=== PATIENT | male | born 2000 | race Native Hawaiian/Other Pacific Islander ===

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

== ENCOUNTER 2018-05-02 02:39 | Emergency (ER) | payer OTHER ==
[2018-05-02 03:08] VITALS: RESP 18
--- NOTE | 2018-05-02 03:43 | XR ---
EXAMINATION TYPE: XR hand complete RT DATE OF EXAM: 05/02/2018 COMPARISON: NONE HISTORY: Hand pain TECHNIQUE: 3 views FINDINGS: Metacarpals are intact. There is a 5 mm chip fracture of the posterior base of the distal p halanx of the little finger. This is probably an old fracture. There is no dislocation. There is a 1 mm foreign body in the soft tissues anterior to the DIP joint of the middle finger. IMPRESSION: Old ununited chip fracture of the DIP joint of the little finger. No definite acute fract ure seen. There is soft tissue swelling on the dorsum of the hand.
[2018-05-02] MEDS ORDERED: LIDOCAINE 1% INJ 10MG/ML (20 ML MDV) SQ ONE (03:50)
--- NOTE | 2018-05-02 04:00 | ED ---
General Adult HPI - General Source: patient, RN notes reviewed Mode of arrival: ambulatory Limitations: no limitations <Carlos Thomas - Last Filed: 05/02/18 04:18> <Silvia Gallo P - Last Filed: 05/03/18 06:43> - General Chief complaint: Extremity Injury, Upper Stated complaint: R Hand Injury Time Seen by Provider: 05/02/18 03:14 - History of Present Illness Initial comments: 17-year-old male presents to the emergency determine for a chief complaint of right hand injury occurring about one hour ago after punching a plastic object. Patient states he was "goofing around with his friends." Patient states he can move his hand but it is painful due to the swelling. Patient denies getting into any fights or any human bites. Patient denies any wrist or elbow pain. Patient denies any other injuries or hitting his head. Patient has no other complaints at this time including shortness of breath, chest pain, abdominal pain, nausea or vomiting, headache, or visual changes. (Carlos Thomas) - Related Data Home Medications Medication Instructions Recorded Confirmed No Known Home Medications 08/21/17 05/02/18 Allergies Allergy/AdvReac Type Severity Reaction Status Date / Time No Known Allergies Allergy Verified 05/02/18 03:24 Review of Systems ROS Other: All systems not noted in ROS Statement are negative. <Carlos Thomas - Last Filed: 05/02/18 04:18> ROS Other: All systems not noted in ROS Statement are negative. <Silvia Gallo P - Last Filed: 05/03/18 06:43> ROS Statement: Those systems with pertinent positive or pertinent negative responses have been documented in the HPI. Past Medical History Past Medical History: No Reported History History of Any Multi-Drug Resistant Organisms: None Reported Past Surgical History: No Surgical Hx Reported Past Psychological History: No Psychological Hx Reported Smoking Status: Current some day smoker Past Alcohol Use History: Rare Past Drug Use History: None Reported <Carlos Thomas - Last Filed: 05/02/18 04:18> General Exam Limitations: no limitations General appearance: alert, in no apparent distress (Sitting on edge of bed and) Head exam: Present: atraumatic, normocephalic, normal inspection Eye exam: Present: normal appearance. Absent: scleral icterus, conjunctival injection ENT exam: Present: normal exam, mucous membranes moist Neck exam: Present: normal inspection, full ROM. Absent: tenderness, meningismus, lymphadenopathy Respiratory exam: Present: normal lung sounds bilaterally. Absent: respiratory distress, wheezes, rales, rhonchi, stridor Cardiovascular Exam: Present: regular rate, normal rhythm, normal heart sounds. Absent: systolic murmur, diastolic murmur, rubs, gallop, clicks Extremities exam: Present: tenderness (Tenderness over the third fourth and fifth carpals of the right hand), normal capillary refill, joint swelling ( Capillary refill less than 2 seconds and radial pulse 2+ in the right upper extremity. Patient does have moderate swelling noted of the dorsal right hand along the third fourth and fifth metacarpals), other (Sensation intact in the right upper extremity. Patient has a 1.5 cm laceration to the dorsal aspect of the fourth metacarpal head. No signs of foreign body. No evidence of cellulitis or other infection.). Absent: full ROM (Patient has some decreased range of motion of the MCP joints in the right hand due to pain but is able to flex and extend MCP, PIP, and DIP joints of all digits in the right hand) Neurological exam: Present: alert, oriented X3, CN II-XII intact Psychiatric exam: Present: normal affect, normal mood <Carlos Thomas P - Last Filed: 05/02/18 04:18> Vital Signs 05/02/18 05/02/18 03:03 04:33 Temperature 98.5 F 97.9 F Pulse Rate 68 71 Respiratory 18 18 Rate Blood Pressure 123/81 119/78 O2 Sat by Pulse 98 98 Oximetry Procedures - Laceration Laceration #1 Consent Obtained: verbal consent Indication: laceration Site: hand Description: linear Depth: simple, single layer Anesthetic Used: lidocaine 1% Anesthesia Technique: local infiltration Amount (mls): 1 Pre-repair: wound explored, irrigated extensively, deep structures intact Type of Sutures: other (ethilon) Size of Sutures: 5-0 Number of Sutures: 4 Technique: simple, interrupted Patient Tolerated Procedure: well, no complications <Carlos Thomas P - Last Filed: 05/02/18 04:18> Medical Decision Making <Carlos Thomas P - Last Filed: 05/02/18 04:18> <Silvia Gallo P - Last Filed: 05/03/18 06:43> - Medical Decision Making 17-year-old male percent to the emergency department for chief complaint of laceration on the fourth metacarpal head of the right hand. Patient punched something earlier today and does have swelling. Patient is able to move all digits of the right hand including all joints in the digit. Sensation intact. Neurovascular intact. X-ray shows no acute fractures seen. Old ununited chip fracture of the DIP joint is noted which patient does not have pain and at this time. Patient is up-to-date on tetanus. 4 sutures were applied. Patient will return to the emergency department if he has any worsening symptoms. He was educated on signs of infection. He will return in 7-10 days to have sutures removed. Patient aware that in 7-10 days if he still has pain he may need repeat x-rays. He will follow up with primary care in 1-2 days for wound recheck. (Carlos Thomas) I was available for consultation in the emergency department. The history and physical exam were done by the midlevel provider. I was consulted for this patient's care. I reviewed the case with the midlevel provider and based on their presentation of the patient, I agree with the assessment, medical decision making and plan of care as documented. (Silvia Gallo) Disposition Is patient prescribed a controlled substance at d/c from ED?: No Time of Disposition: 04:21 <Carlos Thomas P - Last Filed: 05/02/18 04:18> <Silvia Gallo - Last Filed: 05/03/18 06:43> Clinical Impression: Laceration Disposition: HOME SELF-CARE Condition: Good Instructions: Care For Your Stitches (ED), Laceration (ED), RICE Therapy (ED) Additional Instructions: Please monitor for any signs of infection such as spreading redness, streaking redness, or drainage and return if these occur. Please follow-up with primary care in 1-2 days. Rest ice and elevate the right hand. Return in 7-10 days to have sutures removed. If symptoms do not resolve in 7-10 days he may need repeat x-rays. Return if you have any additional concerns or worsening symptoms. Referrals: Pierce Hassan MD [STAFF PHYSICIAN] - 1-2 days
[2018-05-02 04:35] VITALS: BP 119/78; PULSE 71; TEMP 97.9
== END 2018-05-02 04:35 | disposition home or self-care (01) ==
LOC: EC 02:39
DX: S61.411A Laceration without foreign body of right hand, initial encounter (principal); F17.200 Nicotine dependence, unspecified, uncomplicated; W22.8XXA Striking against or struck by other objects, initial encounter; Y92.009 Unspecified place in unspecified non-institutional (private) residence as the place of occurrence of the external cause
CPT/HCPCS: 99283; 12001; 73130; J2001

== ENCOUNTER 2019-03-28 22:54 | Emergency (ER) | payer OTHER ==
[2019-03-28 23:06] VITALS: RESP 17
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
[2019-03-29 03:13] VITALS: BP 130/75; PULSE 60; TEMP 97.9
== END 2019-03-29 02:05 | disposition home or self-care (01) ==
LOC: EC 22:54
DX: F32.9 Major depressive disorder, single episode, unspecified (principal); F17.200 Nicotine dependence, unspecified, uncomplicated
CPT/HCPCS: 82075; 99284

== ENCOUNTER 2019-06-08 19:19 | Inpatient (IN) | payer BC, OTHER ==
[2019-06-08] MEDS ORDERED: ACTIVATED CHARCOAL-SORBITOL 50 GM/240 ML BOTTLE PO STA (20:04)
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
[2019-06-08 20:35] LABS: Amphetamine Screen,Urine Not Detected (NotDetected); Barbiturate Screen,Urine Not Detected (NotDetected); Benzodiazepines Screen,Urine Not Detected (NotDetected); Cocaine Screen,Urine Not Detected (NotDetected); Methadone Screen, Urine Not Detected (NotDetected); Opiate Screen,Urine Not Detected (NotDetected); Oxycodone Screen, Urine Not Detected (NotDetected); Phencyclidine Screen,Urine Not Detected (NotDetected); Tricyclic Antidepressant,Urine Not Detected (NotDetected); Urn Cannabinoid Scrn Not Detected (NotDetected)
[2019-06-08 23:43] LABS: ALT 17 U/L (21-72); AST 27 U/L (17-59); Acetaminophen <10.0 ug/mL; African American GFR (CKD) >90 (>60 ml/min/1.73 sqM); Albumin 4.6 g/dL (3.5-5.0); Alkaline Phosphatase 48 U/L (38-126); Anion Gap 11 mmol/L; Blood Urea Nitrogen 15 mg/dL (9-20); Calcium 9.6 mg/dL (8.4-10.2); Carbon Dioxide 25 mmol/L (22-30); Chloride 107 mmol/L (98-107); Glucose 95 mg/dL (74-99); Non-African American GFR(CKD) >90 (>60 ml/min/1.73 sqM); Salicylate <1.0 mg/dL; Sodium 143 mmol/L (137-145); Total Bilirubin 0.9 mg/dL (0.2-1.3); Total Protein 7.4 g/dL (6.3-8.2)
[2019-06-08 23:45] LABS: Basophils % (A) 0 %; Eosinophils # (A) 0.1 k/uL (0-0.7); Eosinophils % (A) 1 %; HCT 40.3 % (39.0-53.0); HGB 14.7 gm/dL (13.0-17.5); Lymphocytes # (A) 1.9 k/uL (1.0-4.8); Lymphocytes % (A) 31 %; MCH 30.6 pg (25.0-35.0); MCHC 36.4 g/dL (31.0-37.0); MCV 84.1 fL (80.0-100.0); Mean Platelet Volume 5.5; Monocytes # (A) 0.3 k/uL (0-1.0); Monocytes % (A) 5 %; Neutrophils # (A) 3.9 k/uL (1.3-7.7); Neutrophils % (A) 63 %; Platelet Count 263 k/uL (150-450); RBC 4.79 m/uL (4.30-5.90); RDW 11.7 % (11.5-15.5); WBC 6.2 k/uL (4.0-11.0)
[2019-06-09] MEDS ORDERED: MAGNESIUM HYDROXIDE 2,400 MG/10 ML CUP PO PRN (00:15)
[2019-06-09] MEDS ORDERED: MAG HYDROX/AL HYDROX/SIMETH 30 ML CUP PO PRN (00:15)
[2019-06-09] MEDS ORDERED: LORazepam 0.5 MG TAB PO PRN (00:15)
[2019-06-09] MEDS ORDERED: ACETAMINOPHEN TAB 325 MG TAB PO PRN (00:15)
[2019-06-09] MEDS ORDERED: LORazepam 2 MG/ML INJ IM PRN (00:17)
[2019-06-09 00:43] VITALS: BMI 20.7
--- NOTE | 2019-06-09 02:00 | P.MDCNMH ---
History of Present Illness H&P Date: 06/09/19 Chief Complaint: overdosing 18-year-old male with no significant past medical history came into the hospital after ingesting 10 pills of Lexapro. He admits to suicide attempt as he wasn't feeling content with the way his life is and wanted to take a different direction. He immediately regretted what he did and came into the hospital seeking help he arrived within 1 hour of ingestion he received activated charcoal in the ED and was admitted to the psych unit otherwise he denies any chest pain trouble breathing nausea vomiting fevers chills changes in his bowel or urinary habits denies any focal neuro deficits. EKG in the ED was unremarkable Labs and electrolytes in the ED were unremarkable. Review of Systems Pertinent positives as noted in HPI. All other systems were reviewed and are negative Past Medical History Past Medical History: No Reported History History of Any Multi-Drug Resistant Organisms: None Reported Past Surgical History: No Surgical Hx Reported Past Psychological History: No Psychological Hx Reported Smoking Status: Never smoker Past Alcohol Use History: Rare Past Drug Use History: None Reported - Past Family History Family Family Medical History: No Reported History (Denies CAD or cancer) Medications and Allergies Home Medications Medication Instructions Recorded Confirmed Type Escitalopram [Lexapro] See Taper PO DAILY 06/08/19 06/09/19 History Allergies Allergy/AdvReac Type Severity Reaction Status Date / Time No Known Allergies Allergy Verified 06/09/19 00:52 Physical Exam Vitals: Vital Signs Temp Pulse Pulse Resp BP BP Pulse Ox 06/09/19 00:37 98.0 F 67 14 123/82 98 06/08/19 23:06 55 L 16 117/82 99 06/08/19 19:22 97.8 F 56 L 16 130/82 99 Intake and Output 06/08/19 06/08/19 06/09/19 14:59 22:59 06:59 Other: Weight 58.967 kg Constitutional: No acute distress, conversant, pleasant Eyes: Anicteric sclerae, moist conjunctiva, no lid-lag Pupils equal round reactive to light ENMT: NC/AT Oropharynx clear, no erythema, exudates Neck: Supple, FROM, no masses, or JVD No carotid bruits No thyromegaly Lungs: Clear to auscultation Clear to percussion Normal respiratory effort, no accessory muscle use Cardiovascular: Heart regular in rate and rhythm, No murmurs, gallops, or rubs No peripheral edema Abdominal: Soft Nontender, no guarding, rebound or rigidity Abdomen moving with respiration Normoactive bowel sounds No hepatomegaly, No splenomegaly No palpable mass No abdominal wall hernia noted Skin: Normal temperature, tone, texture, turgor No induration No subcutaneous nodules No rash, lesions No ulcers Extremities: No digital cyanosis No clubbing Pedal pulses intact and symmetrical Radial pulses intact and symmetrical No calf tenderness Psychiatric: Alert and oriented to person, place and time Depressed affect Poor judgment Neuro Muscles Strength 5/5 in all 4 extremities Sensation to light touch grossly present throughout Cranial nerves II-XII grossly intact No focal sensory deficits Lymphatics: no palpable cervical or supraclavicular , or inguinal lymph nodes Cranial Nerve Examination - Cranial Nerves Cranial Nerve II- Optic: Intact Cranial Nerve III- Oculomotor: Intact Cranial Nerve IV- Trochlear: Intact Cranial Nerve V- Trigeminal: Intact Cranial Nerve - Abducens: Intact Cranial Nerve VII- Facial: Intact Cranial Nerve VIII- Auditory: Intact Cranial Nerve IX- Glossopharyngeal: Intact Cranial Nerve X- Vagus: Intact Cranial Nerve XI- Accessory: Intact Cranial Nerve XII- Hypoglossal: Intact Results CBC & Chem 7: 06/08/19 22:35 06/08/19 22:35 Labs: Abnormal Lab Results - Last 24 Hours (Table) 06/08/19 Range/Units 22:35 ALT 17 L (21-72) U/L Assessment and Plan Assessment: 18-year-old male was feeling unhappy with the way his life as decided on taking pills to take a different direction his life immediately regretted what he did came into the hospital seeking help he admits that this was a suicidal attempt and admits to prior history of suicidal ideation. Denies any mental health problems denies taking any drugs or alcohol Plan: Suicidal attempt Overdosing on Lexapro status post activated charcoal Management per psych Suicide precautions EKG unremarkable labs unremarkable Thank you for allowing us to participate in the care of this patient. We will follow peripherally. Do not hesitate to contact us with questions. Someone can be reached from the [facility] hospitalist group at all hours of the day at [phone].
[2019-06-09 02:40] LABS: Amorphous Sediment,Urine Occasional /hpf; Appearance,Urine Cloudy (Clear); Bacteria,Urine Rare /hpf; Bilirubin,Urine Negative (Negative); Blood,Urine Negative (Negative); Calcium Oxalate Crystals,Urine Rare /hpf; Color,Urine Yellow; Glucose,Urine (UA) Negative (Negative); Ketones,Urine Negative (Negative); Leukocyte Esterase,Urine Small (Negative); Mucus,Urine Few /hpf; Nitrite,Urine Negative (Negative); Protein,Urine Negative (Negative); RBC,Urine 2 /hpf (0-5); Specific Gravity,Urine 1.023 (1.001-1.035); Squamous Epithelial Cell,Urine <1 /hpf (0-4); WBC,Urine 14 /hpf (0-5)
--- NOTE | 2019-06-09 11:39 | P.HP ---
Psychiatric H&P - . H&P Date: 06/09/19 History & Physical: Allergies Allergy/AdvReac Type Severity Reaction Status Date / Time No Known Allergies Allergy Verified 06/09/19 00:52 Vital Signs Temp 98.3 F 06/09/19 06:46 Pulse 72 06/09/19 06:46 Resp 16 06/09/19 06:46 BP 115/56 06/09/19 06:46 Pulse Ox 98 06/09/19 00:37 Intake & Output 06/08/19 06/09/19 06/09/19 18:59 06:59 18:59 Weight 58.967 kg Laboratory Last Values WBC 6.2 k/uL (4.0-11.0) 06/08/19 22:35 RBC 4.79 m/uL (4.30-5.90) 06/08/19 22:35 Hgb 14.7 gm/dL (13.0-17.5) 06/08/19 22:35 Hct 40.3 % (39.0-53.0) 06/08/19 22:35 MCV 84.1 fL (80.0-100.0) 06/08/19 22:35 MCH 30.6 pg (25.0-35.0) 06/08/19 22:35 MCHC 36.4 g/dL (31.0-37.0) 06/08/19 22:35 RDW 11.7 % (11.5-15.5) 06/08/19 22:35 Plt Count 263 k/uL (150-450) 06/08/19 22:35 Neutrophils % 63 % 06/08/19 22:35 Lymphocytes % 31 % 06/08/19 22:35 Monocytes % 5 % 06/08/19 22:35 Eosinophils % 1 % 06/08/19 22:35 Basophils % 0 % 06/08/19 22:35 Neutrophils # 3.9 k/uL (1.3-7.7) 06/08/19 22:35 Lymphocytes # 1.9 k/uL (1.0-4.8) 06/08/19 22:35 Monocytes # 0.3 k/uL (0-1.0) 06/08/19 22:35 Eosinophils # 0.1 k/uL (0-0.7) 06/08/19 22:35 Basophils # 0.0 k/uL (0-0.2) 06/08/19 22:35 Sodium 143 mmol/L (137-145) 06/08/19 22:35 Potassium 4.0 mmol/L (3.5-5.1) 06/08/19 22:35 Chloride 107 mmol/L (98-107) 06/08/19 22:35 Carbon Dioxide 25 mmol/L (22-30) 06/08/19 22:35 Anion Gap 11 mmol/L 06/08/19 22:35 BUN 15 mg/dL (9-20) 06/08/19 22:35 Creatinine 0.87 mg/dL (0.66-1.25) 06/08/19 22:35 Est GFR (CKD-EPI)AfAm >90 (>60 ml/min/1.73 sqM) 06/08/19 22:35 Est GFR (CKD-EPI)NonAf >90 (>60 ml/min/1.73 sqM) 06/08/19 22:35 Glucose 95 mg/dL (74-99) 06/08/19 22:35 Calcium 9.6 mg/dL (8.4-10.2) 06/08/19 22:35 Total Bilirubin 0.9 mg/dL (0.2-1.3) 06/08/19 22:35 AST 27 U/L (17-59) 06/08/19 22:35 ALT 17 U/L (21-72) L 06/08/19 22:35 Alkaline Phosphatase 48 U/L (38-126) 06/08/19 22:35 Total Protein 7.4 g/dL (6.3-8.2) 06/08/19 22:35 Albumin 4.6 g/dL (3.5-5.0) 06/08/19 22:35 Urine Color Yellow 06/08/19 20:05 Urine Appearance Cloudy (Clear) 06/08/19 20:05 Urine pH 7.0 (5.0-8.0) 06/08/19 20:05 Ur Specific [place] 1.023 (1.001-1.035) 06/08/19 20:05 Urine Protein Negative (Negative) 06/08/19 20:05 Urine Glucose (UA) Negative (Negative) 06/08/19 20:05 Urine Ketones Negative (Negative) 06/08/19 20:05 Urine Blood Negative (Negative) 06/08/19 20:05 Urine Nitrite Negative (Negative) 06/08/19 20:05 Urine Bilirubin Negative (Negative) 06/08/19 20:05 Urine Urobilinogen 4.0 mg/dL (<2.0) 06/08/19 20:05 Ur Leukocyte Esterase Small (Negative) H 06/08/19 20:05 Urine RBC 2 /hpf (0-5) 06/08/19 20:05 Urine WBC 14 /hpf (0-5) H 06/08/19 20:05 Ur Squamous Epith Cells <1 /hpf (0-4) 06/08/19 20:05 Calcium Oxalate Crystal Rare /hpf (None) H 06/08/19 20:05 Amorphous Sediment Occasional /hpf (None) H 06/08/19 20:05 Urine Bacteria Rare /hpf (None) H 06/08/19 20:05 Urine Mucus Few /hpf (None) H 06/08/19 20:05 Salicylates <1.0 mg/dL 06/08/19 22:35 Urine Opiates Screen Not Detected (NotDetected) 06/08/19 20:05 Ur Oxycodone Screen Not Detected (NotDetected) 06/08/19 20:05 Urine Methadone Screen Not Detected (NotDetected) 06/08/19 20:05 Ur Propoxyphene Screen Not Detected (NotDetected) 06/08/19 20:05 Acetaminophen <10.0 ug/mL 06/08/19 22:35 Ur Barbiturates Screen Not Detected (NotDetected) 06/08/19 20:05 U Tricyclic Antidepress Not Detected (NotDetected) 06/08/19 20:05 Ur Phencyclidine Scrn Not Detected (NotDetected) 06/08/19 20:05 Ur Amphetamines Screen Not Detected (NotDetected) 06/08/19 20:05 U Methamphetamines Scrn Not Detected (NotDetected) 06/08/19 20:05 U Benzodiazepines Scrn Not Detected (NotDetected) 06/08/19 20:05 Urine Cocaine Screen Not Detected (NotDetected) 06/08/19 20:05 U Marijuana (THC) Screen Not Detected (NotDetected) 06/08/19 20:05 06/09/19 10:39 IDENTIFYING DATA: Patient is a 18-year-old male who currently lives with his sister and her boyfriend in apartment 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 As per ER note, patient was upset/frustrated life and the direction that it didn't. Patient also mentioned in the ER that he wants to go back to school and wanted more direction. Patient in the ER denied being suicidal however was given 50 g of charcoal with sorbitol prior to being admitted to the inpatient psychiatric unit. Patient was agreeable to be seen by commercial underwriter for evaluation. Patient was calm and cooperative however had a soft tone and poor eye contact during the interview. He stated that he was feeling upset yesterday and had a "mood swing" when he overdosed. He stated that he was arguing with his girlfriend about her canceling plans on him and he was feeling alone and was impulsive. He states that he had no intention of killing himself however stated that "I wanted to take the pain away". Patient states that after taking the overdose he detected his dad who called the ambulance to take him to the hospital. Patient states that he feels better now and safer on the unit. He states that he slept okay last night. He admitted to a history of depression and anxiety and was being prescribed Lexapro 5 mg for the past month by his father's primary care doctor. Patient endorsed wanting to have changes in his life and wanted a new direction possibly wanting to go back to school to study business or to become a police lieutenant. He claims that he is sleeping well, has fair energy and okay appetite. He claims his concentration is good and denies any history of manic symptoms. Patient denies any suicidal or homicidal ideations intent or plan. At this time patient denies any auditory or visual hallucinations. Patient denies any flight of ideas racing thoughts and increased in goal directed behavior. Claims that he does not use any recreational drugs including cigarettes or alcohol or marijuana. PAST PSYCHIATRIC HISTORY: Patient states that he has a history of depression and anxiety and was being prescribed Lexapro 5 mg daily by primary care doctor. He denies any outpatient psychiatric follow-up denies any previous mental health admissions. He denies any previous suicide attempts. PMH:denies ALLERGIES: as per EMR CHEMICAL DEPENDENCY HISTORY: Claims that he does not use any recreational drugs including cigarettes or alcohol or marijuana. FAMILY PSYCHIATRIC/SUBSTANCE USE HISTORY: denies SOCIAL HISTORY: Patient states that he was born and raised in [facility] and claims that he completed high school and has been looking at different college programs to go into. 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 MENTAL STATUS EXAM: General Appearance: Patient appears to be stated age is alert, directable and c ooperative. Patient has poor eye contact, fair hygiene and fair grooming. Behavior: Patient is calmly seated without any agitated behavior. Speech: Patient's speech is fluent and nonpressured. Soft tone Mood/Affect: Patient reports their mood is depressed, affect is congruent and constricted. Suicidality/Homicidality: Patient denies having any suicidal or homicidal ideation intent or plan. Perceptions: Patient denies any auditory or visual hallucinations. Though content/process: There is no evidence of any delusional thought content and thought process is linear and goal-directed. Memory and concentration: AOX3, grossly intact for the purposes of this session. Can spell "WORLD" backwards Judgment and insight: Poor STRENGTHS/WEAKNESSES: strength is that patient has supportive family and currently is employed. Weaknesses the patient is impulsive and poor insight. INTELLECT: average IMPRESSIONS: Major depressive disorder Anxiety disorder unspecified PLAN: -Patient is admitted under voluntary status to MHU for stabilization of psychiatric symptoms and safety. Patient signed adult voluntary form and medication consent and is placed in patient's chart. -Medications : Will start patient on Zoloft 50 mg daily for mood/anxiety. We'll give patient first dose tomorrow as patient overdosed yesterday on another SSRI. Ordered melatonin 3 mg daily at bedtime for sleep. -Ativan PRN for agitation/aggression -Patient was informed of the risks, benefits and side effects of the medication and patient verbally consented to taking the medications. Patient signed med consent form and was placed in chart. -NRT -not required as patient does not smoke. - on board for discharge planning 06/09/19 11:30
[2019-06-10] MEDS: MELATONIN 3 MG TABLET PO SCH ×2 (02:33→21:31)
[2019-06-10] MEDS: SERTRALINE 50 MG TAB PO SCH (08:16)
--- NOTE | 2019-06-10 11:35 | P.PN ---
Progress Note - Text Progress Note Date: 06/10/19 Interval History: Patient was seen this morning attending group but was agreeable to speak to wr rossy in the office. Patient continues to have a soft tone and is guarded about his symptoms and minimizes his overdose. He states that he is feeling "better" today and denies any more depression or anxiety. He states that he is taking his medications and finding it is helping him. Patient stated that he has signed AMA and was looking to get out of the hospital as soon as he can and states that he wants to go to counseling instead and was minimizing his situation/symptoms. Patient states that he slept well last night. Patient claims to be going to groups however as per activity therapist states that he only came to 1 group so far. At this time patient denies any suicidal or homical ideations, intent or plan. Patient denies any auditory, visual hallucinations and denies any paranoia or delusions. Patient denies any side effects from the medications and has been compliant with meds. Mental Status Exam: General Appearance: Patient appears to be stated age is alert, directable and g uarded. Patient has fair eye contact, fair hygiene and fair grooming. Behavior: Patient is calmly seated without any agitated behavior. Speech: Patient's speech is fluent and nonpressured. Soft tone Mood/Affect: Patient reports their mood is depressed, affect is congruent and constricted. Suicidality/Homicidality: Patient denies having any suicidal or homicidal ideation intent or plan. Perceptions: Patient denies any auditory or visual hallucinations. Though content/process: There is no evidence of any delusional thought content and thought process is linear and goal-directed. Memory and concentration: AOX3, grossly intact for the purposes of this session. Judgment and insight: Poor/superficial, improving mildly Assessment Major depressive disorder Anxiety disorder unspecified Plan: -Patient continues to meet criteria for inpatient psychiatric admission for symptom stabilization and safety. Patient has signed AMA last night at 8 PM therefore will be needed to be evaluated for possible discharge versus filing for court for involuntary commitment/court order tomorrow. -Medications: Continue with Zoloft 50 mg daily for mood/anxiety with the plan to increase as tolerated. Continue melatonin 3 mg nightly per bedtime for sleep. -When necessary Ativan for agitation/aggression. -NRT -not required as patient does not smoke. -SW on board for discharge planning.
[2019-06-10 13:46] LABS: Hemoglobin A1C 4.8 % (4.0-6.0)
[2019-06-11 06:51] VITALS: BP 94/56; PULSE 62; RESP 18; TEMP 97.7
[2019-06-11] MEDS: SERTRALINE 50 MG TAB PO SCH (08:23)
--- NOTE | 2019-06-11 11:25 | DS ---
DISCHARGE SUMMARY DATE OF ADMISSION: 06/08/2019 DATE OF DISCHARGE: 06/11/2019. ADMISSION AND DISCHARGE DIAGNOSES: 1. Major depressive disorder. 2. Anxiety disorder. HISTORY OF PRESENTING ILLNESS: The patient is a 18-year-old male. He presented to the ED after an overdose of taking 10 of his Lexapro 5 mg tablets. He described mood swings, which he said was part of his overdose. He was upset over an argument with his girlfriend. He noted a history of depression and anxiety and has been on Lexapro 5 mg a day for 1 month prior to admission. He indicated normal sleep and appetite. He denied a history of manic symptoms. He reported no thoughts of harm to self or others at the time of admission. There was no indication of thought disorder. He reported no outpatient psychiatric followup or prior psychiatric hospitalizations. He was on Lexapro 5 mg a day as his only psychotropic medication. He was admitted for further evaluation. PAST MEDICAL HISTORY, REVIEW OF SYSTEMS, AND PHYSICAL EXAM: As per medical consultation of Dr. Maynard. MENTAL STATUS EXAM: Patient gave poor eye contact. He had a calm manner with no signs of agitation. Speech was normal. Mood was depressed. Affect constricted. He denied thoughts of harm to self or others. There was no indication of thought disorder. Cognition was clear. COURSE OF HOSPITALIZATION: The patient was admitted for comprehensive medical, psychiatric and psychosocial evaluation. The patient was engaged in individual and group therapeutic activity. On admission, Dr. Fernandez discontinued Lexapro and started the patient on Zoloft 50 mg a day. Noted that on day 2 of the hospitalization, patient was reporting that his mood was better. He denied problems with depression or anxiety. According to Dr. Fernandez note he signed AMA. Dr. Fernandez indicated that he would be appropriate for discharge based on social work intervention, namely a family meeting with the patient and father on the day of discharge. CONDITION AT DISCHARGE: Patient was stable. His mood was in a reasonable range. He reported tolerating his psychotropic medication. He voiced no thoughts of harm to self or others. RECOMMENDATIONS AND FOLLOWUP: Patient is discharged to home. DISCHARGE MEDICATIONS: Zoloft 50 mg a day. He is to discontinue Lexapro. A family meeting is scheduled for the day of discharge to address follow-up care, which will be documented through social work and discharge notes. MMODL / IJN: [id number] /
== END 2019-06-11 12:34 | disposition home or self-care (01) | DRG 881 ==
LOC: EC 19:19 → 3MHU 22:43
PROVIDERS: ADMIT Psychiatry & Neurology Psychiatry; ATTEND Psychiatry & Neurology Psychiatry
DX: F32.9 Major depressive disorder, single episode, unspecified (principal); F41.9 Anxiety disorder, unspecified; R45.87 Impulsiveness; T43.221A Poisoning by selective serotonin reuptake inhibitors, accidental (unintentional), initial encounter; Z79.899 Other long term (current) drug therapy; Z87.891 Personal history of nicotine dependence
CPT/HCPCS: 80053; 80061; 80306; 80329; 81001; 82075; 83036; 83520; 84443; 85025; 93005; 99285

== ENCOUNTER → 2020-03-03 | Outpatient (CLI) | payer OTHER ==
--- NOTE | 2020-03-03 11:37 | XR ---
EXAMINATION TYPE: XR hand complete LT DATE OF EXAM: 03/03/2020 CLINICAL HISTORY: pain TECHNIQUE: Frontal, lateral and oblique images of the left hand are obtained. COMPARISON: None. FINDINGS: There is no acute fracture/dislocation evident. The joint spaces appear within normal limi ts. The overlying soft tissue appears unremarkable. IMPRESSION: There is no acute fracture or dislocation. ICD 10 NO FRACTURE, INITIAL EVALUATION
== END | disposition home or self-care (01) ==
LOC: RADXRMAIN 11:16
PROVIDERS: ATTEND Emergency Medicine
DX: S60.222A Contusion of left hand, initial encounter (principal)

== ENCOUNTER 2021-08-30 10:17 | Emergency (ER) | payer BC ==
[2021-08-30 10:22] VITALS: TEMP 98.6
[2021-08-30] MEDS ORDERED: ASPIRIN 81 MG PO STA (10:48)
[2021-08-30 11:07] LABS: Basophils % (A) 0 %; Eosinophils # (A) 0.2 k/uL (0-0.7); Eosinophils % (A) 2 %; HCT 47.1 % (39.0-53.0); HGB 15.2 gm/dL (13.0-17.5); Lymphocytes # (A) 1.9 k/uL (1.0-4.8); Lymphocytes % (A) 23 %; MCH 30.1 pg (25.0-35.0); MCHC 32.3 g/dL (31.0-37.0); Mean Platelet Volume 6.7; Monocytes # (A) 0.4 k/uL (0-1.0); Monocytes % (A) 5 %; Neutrophils # (A) 5.8 k/uL (1.3-7.7); Neutrophils % (A) 68 %; Platelet Count 513 k/uL (150-450); RBC 5.07 m/uL (4.30-5.90); RDW 12.2 % (11.5-15.5); WBC 8.5 k/uL (3.8-10.6)
--- NOTE | 2021-08-30 11:14 | XR ---
EXAMINATION TYPE: XR chest 2V DATE OF EXAM: 08/30/2021 COMPARISON: NONE TECHNIQUE: PA and lateral views submitted. HISTORY: Pain FINDINGS: The lungs are clear and there is no pneumothorax, pleural effusion, or focal pneumonia. Heart size normal. No overt failure. No pleural effusion or pneumothorax. Biapical pleural thickening. IMPRESSION: 1. No acute process.
[2021-08-30 11:26] LABS: INR 0.9 (<1.2); Partial Thromboplastin Time 22.9 sec (22.0-30.0)
[2021-08-30 11:52] LABS: ALT 28 U/L (4-49); African American GFR (CKD) >90 (>60 ml/min/1.73 sqM); Anion Gap 14 mmol/L; Blood Urea Nitrogen 12 mg/dL (9-20); Calcium 8.8 mg/dL (8.4-10.2); Carbon Dioxide 22 mmol/L (22-30); Chloride 101 mmol/L (98-107); Glucose 83 mg/dL (74-99); Non-African American GFR(CKD) >90 (>60 ml/min/1.73 sqM); Sodium 137 mmol/L (137-145); Total Protein 7.6 g/dL (6.3-8.2)
[2021-08-30 12:11] LABS: AST 52 U/L (17-59); Alkaline Phosphatase 85 U/L (38-126); Magnesium 2.2 mg/dL (1.6-2.3); Potassium 4.8 mmol/L (3.5-5.1)
--- NOTE | 2021-08-30 13:19 | CT ---
EXAMINATION TYPE: CT chest angio for PE DATE OF EXAM: 08/30/2021 COMPARISON: Chest x-ray same date HISTORY: Chest pain, Elevated D-dimer CT DLP: 382.8 mGycm Automated exposure control for dose reduction was used. CONTRAST: CT Chest for pulmonary embolism performed with without and with IV Contrast, patient injected with 10 0 ml mL of Isovue 370. FINDINGS: LUNGS: The lungs are grossly clear, there is no concerning parenchymal mass or nodule identified. T here is no pleural effusion or pneumothorax seen. The tracheobronchial tree is patent. MEDIASTINUM: There is satisfactory enhancement of the pulmonary artery and its branches, there is no CT evidence for pulmonary embolism. There are no greater than 1 cm hilar or mediastinal lymph nodes. No pericardial effusion is seen. AORTA: No additional significant abnormality is seen. OTHER: No additional significant abnormality is seen. IMPRESSION: No significant abnormality is evident
--- NOTE | 2021-08-30 13:45 | ED ---
General Adult HPI - General Chief complaint: Chest Pain Stated complaint: abnormal EKG Time Seen by Provider: 08/30/21 10:29 Source: patient, RN notes reviewed, old records reviewed Mode of arrival: ambulatory Limitations: no limitations - History of Present Illness Initial comments: Patient is a 20-year-old male with past medical history is unremarkable presents emergency Department complaining of on again off again left-sided chest discomfort and pain. He states the pain is an achy, pulling sensation located over the left pectoral muscle. Patient states he was happy objects at work and also works out a lot. She notices it occasionally after he works out. States it self resolves. Currently does not have any pain. Says PCP today and was in structed to come to the emergency department for further evaluation. I spoke with her over the phone and she concern for J-point elevation in the setting of chest pain. Patient currently has no chest pain. He states it last occurred yesterday. Denies any shortness of breath associated with it, fevers, chills, cough. Denies any nausea, vomiting, abdominal pain. His no other associated symptoms at this time. Was not vaccinated for COVID-19. Presents for further evaluation. - Related Data Home Medications Medication Instructions Recorded Confirmed No Known Home Medications 08/30/21 08/30/21 Allergies Allergy/AdvReac Type Severity Reaction Status Date / Time No Known Allergies Allergy Verified 08/30/21 11:44 Review of Systems ROS Statement: Those systems with pertinent positive or pertinent negative responses have been documented in the HPI. Review of Systems: CONST: Denies fever EYES: Denies blurry vision ENT: Denies nasal congestion C/V: Denies Chest pain RESP: Denies shortness of breath GI: Denies abdominal pain : Denies dysuria SKIN: Denies rash. MSK: Denies joint pain. NEURO: Denies headache ROS Other: All systems not noted in ROS Statement are negative. Past Medical History Past Medical History: No Reported History History of Any Multi-Drug Resistant Organisms: None Reported Past Surgical History: No Surgical Hx Reported Past Psychological History: No Psychological Hx Reported Smoking Status: Never smoker Past Alcohol Use History: None Reported Past Drug Use History: None Reported - Past Family History Family Family Medical History: No Reported History (Denies CAD or cancer) General Exam - General Exam Comments Initial Comments: General: Appears in no acute distress. HEAD: Normal with no signs of head trauma. EYES: PERRLA, EOMI, conjunctiva normal, no discharge. ENT: Hearing grossly intact, normal oropharynx. RESPIRATORY: Clear breath sounds bilaterally. No wheezes, rales, or rhonchi. C/V: Regular rate and rhythm. S1 and S2 auscultated, no edema, peripheral pulses 2+ and intact throughout ABD: Abd is soft, nontender, nondistended EXT: Normal range of motion, no obvious deformity SKIN: No rashes or lesions observed on exposed skin. NEURO: Alert and oriented 4. Limitations: no limitations Course Vital Signs 08/30/21 08/30/21 08/30/21 10:19 10:59 13:56 Temperature 98.6 F Pulse Rate 59 L 56 L 51 L Respiratory 18 16 18 Rate Blood Pressure 124/70 118/70 114/65 O2 Sat by Pulse 100 100 99 Oximetry Medical Decision Making - Medical Decision Making Based on the patient's presentation and physical exam, I'm concerned for possible cardiac etiology for the patient. Due to the persistent nature of his chest pain, possibly of pulmonary embolism. EKG shows no signs of acute ischemia. Patient will be given an aspirin, and cardiac workup will be obtained. He was in agreement this plan. Patient is asymptomatic at this time. EKG showed no signs of acute ischemia. Chest x-ray shows no acute cardio pulmonary process. Laboratory studies are remarkable for negative troponin, however there is a positive d-dimer of 1.31. Remainder of the labs are unremarkable. I discussed the findings with the patient and recommended we obtain a CT angiogram throughout the possibility of pulmonary embolus. Patient was in agreement this plan. CTPE showed no significant abnormality or signs of PE. I did the patient results of his imaging. He remained asymptomatic at this time. I believe it is safe for discharge home. He was in agreement this plan. I instructed the patient to follow up with their PCP in the next 3 days. I explained that the patient should return to the emergency department if they experience any worsening symptoms. Strict return precautions were discussed with the patient. The patient expressed understanding of these instructions. I answered all questions that the patient had. The patient was discharged home in good condition with their prescriptions and follow up information. - Lab Data Result diagrams: 08/30/21 10:57 08/30/21 10:57 Lab Results 1208/30/21 08/30/21 Range/Units 10:57 10:57 10:57 WBC 8.5 (3.8-10.6) k/uL RBC 5.07 (4.30-5.90) m/uL Hgb 15.2 (13.0-17.5) gm/dL Hct 47.1 (39.0-53.0) % MCV 93.0 (80.0-100.0) fL MCH 30.1 (25.0-35.0) pg MCHC 32.3 (31.0-37.0) g/dL RDW 12.2 (11.5-15.5) % Plt Count 513 H (150-450) k/uL MPV 6.7 Neutrophils % 68 % Lymphocytes % 23 % Monocytes % 5 % Eosinophils % 2 % Basophils % 0 % Neutrophils # 5.8 (1.3-7.7) k/uL Lymphocytes # 1.9 (1.0-4.8) k/uL Monocytes # 0.4 (0-1.0) k/uL Eosinophils # 0.2 (0-0.7) k/uL Basophils # 0.0 (0-0.2) k/uL PT 10.0 (9.0-12.0) sec INR 0.9 (<1.2) APTT 22.9 (22.0-30.0) sec D-Dimer 1.31 H (<0.60) mg/L FEU Sodium 137 (137-145) mmol/L Potassium 4.8 (3.5-5.1) mmol/L Chloride 101 (98-107) mmol/L Carbon Dioxide 22 (22-30) mmol/L Anion Gap 14 mmol/L BUN 12 (9-20) mg/dL Creatinine 1.07 (0.66-1.25) mg/dL Est GFR (CKD-EPI)AfAm >90 (>60 ml/min/1.73 sqM) Est GFR (CKD-EPI)NonAf >90 (>60 ml/min/1.73 sqM) Glucose 83 (74-99) mg/dL Calcium 8.8 (8.4-10.2) mg/dL Magnesium 2.2 (1.6-2.3) mg/dL Total Bilirubin 1.0 (0.2-1.3) mg/dL AST 52 (17-59) U/L ALT 28 (4-49) U/L Alkaline Phosphatase 85 (38-126) U/L Troponin I (0.000-0.034) ng/mL Total Protein 7.6 (6.3-8.2) g/dL Albumin 4.0 (3.5-5.0) g/dL 08/30/21 Range/Units 10:57 WBC (3.8-10.6) k/uL RBC (4.30-5.90) m/uL Hgb (13.0-17.5) gm/dL Hct (39.0-53.0) % MCV (80.0-100.0) fL MCH (25.0-35.0) pg MCHC (31.0-37.0) g/dL RDW (11.5-15.5) % Plt Count (150-450) k/uL MPV Neutrophils % % Lymphocytes % % Monocytes % % Eosinophils % % Basophils % % Neutrophils # (1.3-7.7) k/uL Lymphocytes # (1.0-4.8) k/uL Monocytes # (0-1.0) k/uL Eosinophils # (0-0.7) k/uL Basophils # (0-0.2) k/uL PT (9.0-12.0) sec INR (<1.2) APTT (22.0-30.0) sec D-Dimer (<0.60) mg/L FEU Sodium (137-145) mmol/L Potassium (3.5-5.1) mmol/L Chloride (98-107) mmol/L Carbon Dioxide (22-30) mmol/L Anion Gap mmol/L BUN (9-20) mg/dL Creatinine (0.66-1.25) mg/dL Est GFR (CKD-EPI)AfAm (>60 ml/min/1.73 sqM) Est GFR (CKD-EPI)NonAf (>60 ml/min/1.73 sqM) Glucose (74-99) mg/dL Calcium (8.4-10.2) mg/dL Magnesium (1.6-2.3) mg/dL Total Bilirubin (0.2-1.3) mg/dL AST (17-59) U/L ALT (4-49) U/L Alkaline Phosphatase (38-126) U/L Troponin I <0.012 (0.000-0.034) ng/mL Total Protein (6.3-8.2) g/dL Albumin (3.5-5.0) g/dL - EKG Data -: EKG Interpreted by Me EKG Comments: 12-lead Electrocardiogram Interpretation Note EKG was reviewed and interpreted by myself. 12-lead ECG performed at 1027 is interpreted by me as revealing normal sinus rhythm at a rate of 59 beats per minute. [place] is normal. RI interval is 120 ms, QRS duration is 96 seconds, QTC is 429 ms.. There were no ST or T wave abnormalities to suggest myocardial ischemia or injury. There is J-point elevation in leads V3 through V6. R wave progression across the precordium was satisfactory. By my interpretation this EKG is non-diagnostic for acute ischemia. Disposition Clinical Impression: Chest pain of unknown etiology Disposition: HOME SELF-CARE Condition: Good Instructions (If sedation given, give patient instructions): Chest Pain (ED) Is patient prescribed a controlled substance at d/c from ED?: No Referrals: Yamile King MD [Primary Care Provider] - 1-2 days
[2021-08-30 13:58] VITALS: BP 114/65; PULSE 51; RESP 18
== END 2021-08-30 14:00 | disposition home or self-care (01) ==
LOC: EC 10:17
DX: R07.9 Chest pain, unspecified (principal)
CPT/HCPCS: 36415; 93005; 85379; 80053; 83735; 84484; 85025; 85610; 85730; 71046; 71275; 99285; Q9967

== ENCOUNTER 2022-02-01 06:10 | Emergency (ER) | payer BC ==
[2022-02-01 06:20] VITALS: BP 120/68; PULSE 67; RESP 18; TEMP 97.9
[2022-02-01] MEDS ORDERED: ORPHENADRINE 30 MG/ML 2 ML VIAL IM STA (06:29)
[2022-02-01] MEDS ORDERED: KETOROLAC 15 MG/ML 1 ML VIAL IM STA (06:29)
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
[2022-02-01] MEDS ORDERED: CYCLOBENZAPRINE 10MG STARTER 3 TAB BTL PO STA (06:40)
== END 2022-02-01 06:55 | disposition home or self-care (01) ==
LOC: EC 06:10
DX: S16.1XXA Strain of muscle, fascia and tendon at neck level, initial encounter (principal); V89.2XXA Person injured in unspecified motor-vehicle accident, traffic, initial encounter
CPT/HCPCS: 99283; 96372 ×2; J2360; J1885

== ENCOUNTER 2022-02-11 18:41 | Emergency (ER) | payer BC, OTHER ==
[2022-02-11 19:15] VITALS: BP 127/78; PULSE 71; RESP 20; TEMP 98.2
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
== END 2022-02-11 21:33 | disposition home or self-care (01) ==
LOC: EC 18:41
DX: S29.012A Strain of muscle and tendon of back wall of thorax, initial encounter (principal); V89.2XXA Person injured in unspecified motor-vehicle accident, traffic, initial encounter
CPT/HCPCS: 99283

== ENCOUNTER 2022-03-01 06:05 | Emergency (ER) | payer BC, OTHER ==
[2022-03-01 06:09] VITALS: BP 136/83; PULSE 72; RESP 15; TEMP 97.8
[2022-03-01] MEDS ORDERED: ORPHENADRINE 30 MG/ML 2 ML VIAL IM STA (07:09)
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
== END 2022-03-01 07:57 | disposition home or self-care (01) ==
LOC: EC 06:05
DX: M54.6 Pain in thoracic spine (principal); V49.9XXA Car occupant (driver) (passenger) injured in unspecified traffic accident, initial encounter
CPT/HCPCS: 72128; 99284; 96372; J2360

== ENCOUNTER 2022-07-19 00:23 | Emergency (ER) | payer OTHER ==
[2022-07-19 00:27] VITALS: BP 147/93; PULSE 75; RESP 18; TEMP 98
[2022-07-19] MEDS ORDERED: IBUPROFEN 400 MG TAB PO STA (00:50)
[2022-07-19] MEDS ORDERED: ACETAMINOPHEN TAB 500 MG TAB PO STA (00:50)
--- NOTE | 2022-07-19 01:06 | ED ---
URI HPI - General Chief Complaint: Upper Respiratory Infection Stated Complaint: Chest Pain Time Seen by Provider: 07/19/22 00:34 Source: patient, RN notes reviewed Mode of arrival: ambulatory Limitations: no limitations - History of Present Illness Initial Comments: This is a pleasant 21-year-old male who presents to the half-way, complaining of cough, chest wall pain which is worsened with coughing, intermittent nosebleed, clear runny nose, possible subjective fever. Patient states she is also coughing up some phlegm. Patient states that he coughed up some blood after having a nosebleed. This is since resolved. Patient is a nonsmoker. No history of lung problems. No medical history. Patient states both of his children were diagnosed with RSV on Friday. No headache, no fever or chills, no changes in vision or hearing, no difficulty with speech, no neck pain, no shortness of breath, no abdominal pain, no nausea or vomiting, no changes in urination or bowel movements, no numbness or tingling, no extremity pain, no skin rashes or lesions. Past medical, surgical, social, and family history reviewed. MD Complaint: cough, sore throat, rhinorrhea, nasal congestion - Related Data Previous Rx's Medication Instructions Recorded Acetaminophen [Tylenol] 500 mg PO Q4-6H PRN #24 tab 02/11/22 Naproxen [Naprosyn] 375 mg PO Q12HR PRN #20 tablet 02/11/22 tiZANidine HCL [Zanaflex] 4 mg PO Q6HR PRN #24 tab 02/11/22 Cyclobenzaprine [Flexeril] 10 mg PO TID PRN #15 tab 03/01/22 Acetaminophen Tab [Tylenol Tab] 500 mg PO Q6H PRN #24 tablet 07/19/22 Benzonatate [Tessalon Perles] 200 mg PO TID PRN #30 capsule 07/19/22 Ibuprofen [Motrin] 600 mg PO Q8HR PRN #30 tab 07/19/22 Allergies Allergy/AdvReac Type Severity Reaction Status Date / Time No Known Allergies Allergy Verified 07/19/22 00:27 Review of Systems ROS Statement: Those systems with pertinent positive or pertinent negative responses have been documented in the HPI. ROS Other: All systems not noted in ROS Statement are negative. Past Medical History Past Medical History: No Reported History History of Any Multi-Drug Resistant Organisms: None Reported Past Surgical History: No Surgical Hx Reported Past Psychological History: No Psychological Hx Reported Smoking Status: Never smoker Past Alcohol Use History: None Reported Past Drug Use History: None Reported - Past Family History Family Family Medical History: No Reported History (Denies CAD or cancer) General Exam - General Exam Comments Initial Comments: Vital signs stable, patient afebrile. Patient does not appear to be ill or toxic. No distress. Limitations: no limitations General appearance: alert, in no apparent distress Head exam: Present: atraumatic, normocephalic, normal inspection Eye exam: Present: normal appearance, PERRL, EOMI. Absent: scleral icterus, conjunctival injection, periorbital swelling ENT exam: Present: normal exam, normal oropharynx, mucous membranes moist, TM's normal bilaterally, normal external ear exam. Absent: mucous membranes dry Expanded Ear exam: Present: normal external inspection Mouth exam: Present: tongue normal, other (Clear runny nose noted.). Absent: drooling, trismus, muffled voice, tongue elevation, laceration Teeth exam: Present: normal inspection Throat exam: other (Patient does have evidence of mucoid postnasal drainage. No purulence). negative: tonsillar erythema, tonsillomegaly, tonsillar exudate, R peritonsillar mass, L peritonsillar mass Neck exam: Present: normal inspection. Absent: tenderness, meningismus, lymphadenopathy Respiratory exam: Present: normal lung sounds bilaterally, chest wall tenderness. Absent: respiratory distress, wheezes, rales, rhonchi, stridor, accessory muscle use, decreased breath sounds, prolonged expiratory Cardiovascular Exam: Present: regular rate, normal rhythm, normal heart sounds. Absent: systolic murmur, diastolic murmur, rubs, gallop, clicks GI/Abdominal exam: Present: soft, normal bowel sounds. Absent: distended, tenderness, guarding, rebound, rigid Extremities exam: Present: normal inspection, full ROM, normal capillary refill. Absent: tenderness, pedal edema, joint swelling, calf tenderness Back exam: Present: normal inspection Neurological exam: Present: alert, oriented X3, CN II-XII intact Psychiatric exam: Present: normal affect, normal mood Skin exam: Present: warm, dry, intact, normal color. Absent: rash Course Vital Signs 07/19/22 00:25 Temperature 98 F Pulse Rate 75 Respiratory 18 Rate Blood Pressure 147/93 O2 Sat by Pulse 98 Oximetry Medical Decision Making - Medical Decision Making Patient's symptom nausea most indicative of viral bronchitis. Patient in no distress. I suspect the patient's bout of hemoptysis after having a episode of epistaxis was due to postnasal drainage. This is resolved. Patient does not appear to be ill or toxic. I'm going to order a chest x-ray for completeness sake. I did offer COVID-19 test. Given the fact the patient's 2 children have been confirmed to have RSV I suspect this is a viral upper respiratory infection with associated cough. Patient was told to return to the ER for any signs or symptoms worsen. Told to return immediately if any other problems arise. All questions answered. Treatment plan discussed. Patient in agreement Every effort has been made to ensure accuracy of this dictation. However, due to the limitations of electronic medical records and dictation devices, errors in charting still occur. Supervising physician is Dr. Patricia - Radiology Data Radiology results: report reviewed, image reviewed I did Interpret this film myself. No evidence of osseous lesion. No evidence of infiltrate. No pneumothorax. No acute pathology. A concur with the radiology interpretation. Disposition Clinical Impression: Viral URI with cough Disposition: HOME SELF-CARE Condition: Good Instructions (If sedation given, give patient instructions): Upper Respiratory Infection (ED) Additional Instructions: Follow-up with your regular physician as directed. Return to the ER immediately if any symptoms worsen, new symptoms arise, or any other problems develop. Prescriptions: Ibuprofen [Motrin] 600 mg PO Q8HR PRN #30 tab PRN Reason: Pain Benzonatate [Tessalon Perles] 200 mg PO TID PRN #30 capsule PRN Reason: Cough Acetaminophen Tab [Tylenol Tab] 500 mg PO Q6H PRN #24 tablet PRN Reason: Pain Is patient prescribed a controlled substance at d/c from ED?: No Referrals: Yamile King MD [Primary Care Provider] - 07/26/22 Time of Disposition: 01:41
--- NOTE | 2022-07-19 01:32 | XR ---
EXAMINATION TYPE: XR chest 2V DATE OF EXAM: 07/19/2022 COMPARISON: 08/30/2021 HISTORY: Chest pain TECHNIQUE: 2 view FINDINGS: Heart and mediastinum are normal. Lungs are clear. Diaphragm is normal. Bony thorax is inta ct. IMPRESSION: Normal chest. No change
== END 2022-07-19 01:51 | disposition home or self-care (01) ==
LOC: EC 00:23
DX: J06.9 Acute upper respiratory infection, unspecified (principal)
CPT/HCPCS: 71046; 99284

== ENCOUNTER 2022-09-04 21:07 | Emergency (ER) | payer OTHER ==
[2022-09-04 22:55] VITALS: RESP 16
[2022-09-04] MEDS ORDERED: ORPHENADRINE 30 MG/ML 2 ML VIAL IM STA (23:15)
[2022-09-04] MEDS ORDERED: KETOROLAC 15 MG/ML 1 ML VIAL IM STA (23:15)
[2022-09-04] MEDS ORDERED: DEXAMETHASONE SOD PHOSPHATE 10 MG/ML 1 ML VIAL IM STA (23:15)
--- NOTE | 2022-09-05 00:07 | XR ---
EXAMINATION TYPE: XR lumbar spine 2 or 3V DATE OF EXAM: 09/04/2022 COMPARISON: NONE HISTORY: Injury and pain TECHNIQUE: 3 views FINDINGS: Lumbar vertebrae have normal alignment. Posterior elements are intact. No compression fract ure. Posterior elements are intact. Sacroiliac joints appear intact. IMPRESSION: Normal lumbar spine exam.
--- NOTE | 2022-09-05 00:31 | ED ---
Back Pain HPI - General Chief Complaint: Back Pain/Injury Stated Complaint: Mid back pain Time Seen by Provider: 09/04/22 22:59 Source: patient Limitations: no limitations - History of Present Illness Initial Comments: Patient is a 21-year-old male presenting with chief complaint of back pain. Patient had a previous back injury, however Today he was at the gym and while he was putting his weight away he felt an increase in pain. Patient admits to radiation of pain down the legs. No loss of bowel or bladder control or saddle paresthesia. Patient has not taken any supportive treatment at home. No abdominal pain, nausea, vomiting, chest pain, difficulty breathing, fever, chills, gait disturbances. - Related Data Previous Rx's Medication Instructions Recorded Acetaminophen [Tylenol] 500 mg PO Q4-6H PRN #24 tab 02/11/22 Naproxen [Naprosyn] 375 mg PO Q12HR PRN #20 tablet 02/11/22 tiZANidine HCL [Zanaflex] 4 mg PO Q6HR PRN #24 tab 02/11/22 Cyclobenzaprine [Flexeril] 10 mg PO TID PRN #15 tab 03/01/22 Acetaminophen Tab [Tylenol Tab] 500 mg PO Q6H PRN #24 tablet 07/19/22 Benzonatate [Tessalon Perles] 200 mg PO TID PRN #30 capsule 07/19/22 Ibuprofen [Motrin] 600 mg PO Q8HR PRN #30 tab 07/19/22 Cyclobenzaprine [Flexeril] 10 mg PO TID PRN #20 tab 09/05/22 Lidocaine 5% Patch [Lidoderm 5% 1 patch TOPICAL DAILY PRN #1 pack 09/05/22 Patch] Allergies Allergy/AdvReac Type Severity Reaction Status Date / Time No Known Allergies Allergy Verified 07/19/22 00:27 Review of Systems ROS Statement: Those systems with pertinent positive or pertinent negative responses have been documented in the HPI. ROS Other: All systems not noted in ROS Statement are negative. Past Medical History Past Medical History: No Reported History History of Any Multi-Drug Resistant Organisms: None Reported Past Surgical History: No Surgical Hx Reported Past Psychological History: No Psychological Hx Reported Smoking Status: Never smoker Past Alcohol Use History: None Reported Past Drug Use History: None Reported - Past Family History Family Family Medical History: No Reported History (Denies CAD or cancer) General Exam Limitations: no limitations General appearance: alert, in no apparent distress Head exam: Present: atraumatic, normocephalic, normal inspection Eye exam: Present: normal appearance Neck exam: Present: normal inspection Back exam: Present: normal inspection, full ROM Neurological exam: Present: alert, oriented X3, CN II-XII intact Psychiatric exam: Present: normal affect, normal mood Skin exam: Present: warm, dry, intact, normal color. Absent: rash Course Vital Signs 09/04/22 09/05/22 22:51 00:36 Temperature 98.1 F 98.6 F Pulse Rate 86 78 Respiratory 16 16 Rate Blood Pressure 146/87 130/78 O2 Sat by Pulse 99 99 Oximetry Medical Decision Making - Medical Decision Making Was pt. sent in by a medical professional or institution? @No Did you speak to anyone other than the patient for history? @No Did you review nursing and triage notes? @Review and agree Were old charts reviewed? @No Differential Diagnosis? @ MDM Differential Back Pain: Strain, cauda equina syndrome, fracture, subluxation, disc herniation, DJD, spinal stenosis EKG interpreted by me (3pts min.)? @ [none] X-rays interpreted by me (1pt min.)? @Yes, no acute process CT interpreted by me (1pt min.)? @ [none] U/S interpreted by me (1pt. min.)? @ [none] What testing was considered but not performed? (CT, X-rays, U/S, labs)? Why? @None What meds were considered but not given? Why? @ [none] Did you discuss the management of the patient with other professionals? @No Did you reconcile home meds? @ [none] Was smoking cessation discussed for >3mins.? @ [none] Was critical care preformed (if so, how long)? @ [none] Were there social determinants of health that impacted care today? How? (Homelessness, low income, unemployed, alcoholism, drug addiction, transportation, low edu. Level, literacy, decrease access to med. care, care home, rehab)? @No Was there de-escalation of care discussed even if they declined? (Discuss DNR or withdrawal of care, Hospice)? @No What co-morbidities impacted this encounter? (DM, HTN, Smoking, COPD, CAD, Cancer, CVA, Hep., AIDS, mental health diagnosis, sleep apnea, morbid obesity)? @None Was patient admitted / discharged? @Patient was seen in the ER for back pain. Patient had a previous injury that was aggravated today while he was at the gym. No loss of bowel or bladder control or saddle paresthesia. Patient has pain that he describes as "spasming" with radiation of pain as well as numbness and tingling down the legs. Physical examination is unremarkable. X-ray shows no acute process. Patient is given pain medication, on reassessment he reports improvement in his symptoms. Patient is educated on supportive treatment at home. He is given a prescription for lidocaine patches and cyclobenzaprine, do not take cyclobenzaprine before driving or operating heavy machinery as it may cause drowsiness. Take Motrin and Tylenol as needed. Follow-up with PCP. Report back to ER with any new or worsening symptoms. Discussed return parameters and answered all questions. Patient conveyed verbal understanding and agreed to the plan. I discussed this case in detail with my attending Dr. Patricia Undiagnosed new problem with uncertain prognosis? @ [none] Drug Therapy requiring intensive monitoring for toxicity (Heparin, Nitro, Insulin, Cardizem)? @ [none] Were any procedures done? @ [none] Diagnosis/symptom? @Mechanical back pain Acute, or Chronic, or Acute on Chronic? @Acute on chronic Uncomplicated (without systemic symptoms) or Complicated (systemic symptoms)? @Uncomplicated Side effects of treatment? @ [none] Exacerbation, Progression, or Severe Exacerbation] @ [no] Poses a threat to life or bodily function? @ [no] Disposition Clinical Impression: Mechanical back pain Disposition: HOME SELF-CARE Condition: Good Instructions (If sedation given, give patient instructions): Back Pain (ED) Additional Instructions: Follow-up with PCP. Report back to ER with any new or worsening symptoms. Take medication as prescribed. Do not take cyclobenzaprine before driving or operating heavy machinery as it may cause drowsiness. Take Motrin and Tylenol as needed. Use heat and ice as needed. Prescriptions: Cyclobenzaprine [Flexeril] 10 mg PO TID PRN #20 tab PRN Reason: Spasms Lidocaine 5% Patch [Lidoderm 5% Patch] 1 patch TOPICAL DAILY PRN #1 pack PRN Reason: Pain Is patient prescribed a controlled substance at d/c from ED?: No Referrals: Yamile King MD [Primary Care Provider] - 1-2 days Time of Disposition: 00:30
[2022-09-05 00:38] VITALS: BP 130/78; PULSE 78; TEMP 98.6
== END 2022-09-05 00:36 | disposition home or self-care (01) ==
LOC: EC 21:07
DX: M54.50 Low back pain, unspecified (principal)
CPT/HCPCS: 72100; 99283; 96372 ×3; J1100; J2360; J1885

== ENCOUNTER 2023-02-20 02:34 | Emergency (ER) | payer OTHER ==
[2023-02-20 02:40] VITALS: BP 115/61; PULSE 62; RESP 16; TEMP 97.8
[2023-02-20] MEDS ORDERED: KETOROLAC 15 MG/ML 1 ML VIAL IM STA (03:06)
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
== END 2023-02-20 03:27 | disposition home or self-care (01) ==
LOC: EC 02:34
DX: S39.012A Strain of muscle, fascia and tendon of lower back, initial encounter (principal); X58.XXXA Exposure to other specified factors, initial encounter
CPT/HCPCS: 99283; 96372; J1885; 96374